=== PATIENT | female | born 1990 | race Caucasian/White ===

== ENCOUNTER → 2016-08-12 | Day surgery (SDC) | payer OTHER ==
[~2016-08-12] MED LIST: NO MEDICATIONS
--- NOTE | ~2016-08-12 | HP ---
Unit #: [id number] #: [id number] Patient: OLGA LIDIA LEOS [id number] [address] [place], [place] [address] [id number] O MR#: [id number] NAME: OLGA LIDIA LEOS ROOM: Age: 25 Sex: F Admission Date: 08/12/2016 : 1990 Attending Physician: Betsy Car M.D. Primary Care Physician: Yumiko Barnes M.D. HISTORY AND PHYSICAL CHIEF COMPLAINT Left foot pain. HISTORY OF PRESENT ILLNESS The patient is a 25-year-old female who fell off a horse in 2008 sustaining a left femoral neck fracture which was treated with open reduction internal fixation and two screws. The patient now has impingement of the screws against her talonavicular joint. She has failed to respond to conservative care to include physical therapy. She is now to undergo removal of the two screws. PAST MEDICAL HISTORY 1. Morbid obesity. 2. Anxiety. 3. Migraine headaches. 4. Cholelithiasis. PAST SURGICAL HISTORY 1. Brain surgery. 2. Left ankle external fixation. 3. Left talar open reduction internal fixation in 2008. ALLERGIES None. SOCIAL HISTORY The patient is a five pack-year smoker. She drinks alcohol socially. FAMILY HISTORY Stroke, hypertension, hypercholesterolemia, bipolar, depression, seizures, asthma, diabetes, COPD. REVIEW OF SYSTEMS Unremarkable. PHYSICAL EXAMINATION GENERAL: Height 5 foot 7, weight 365 pounds, BMI 57. In general, this is a morbidly obese female in no acute distress. She uses a cane PHARYNX: Clear. NECK: Supple without masses. HEART: Regular sinus rhythm without murmurs or gallops. LUNGS: Clear. ABDOMEN: Soft and nontender without masses. Unit #: [id number] #: [id number] Patient: OLGA LIDIA LEOS Evaluation of the left foot shows pes planus. The hindfoot is neutral. She has a well-healed anterior longitudinal incision over the ankle measuring 8 cm. There is no warmth or erythema. The patient is maximally tender over the anterior tibiotalar joint and over the sinus tarsus. Sensation is normal. Pulses are normal. Motor exam is normal. Left ankle dorsiflexion 0, plantar flexion is 40. Subtalar motion is normal. Standing x-rays of the left ankle show a well maintained tibiotalar joint and subtalar joint. Left foot x-rays shows two cannulated screws in the talar neck placed distal medial to lateral. ADMITTING DIAGNOSIS Painful retained left foot hardware. PLAN The patient is to undergo removal of the two screws. This procedure was described along with the risks of bleeding, infection, nerve damage, need for further surgery in the future, prolonged recovery time, deep venous thrombosis, pulmonary embolism, anesthetic complications. The patient understands the above risks and agrees to proceed. Dictated by Palomo Waggoner/arnold TD: 08/05/2016 06:09 JOB #: [id number] HISTORY AND PHYSICAL X Alcira Car MD HISTORY AND PHYSICAL
--- NOTE | ~2016-08-12 | OR ---
Unit #: [id number] #: [id number] Patient: OLGA LIDIA LEOS [id number] [address] [place], [place] [address] [id number] O MR#: [id number] NAME: OLGA LIDIA LEOS ROOM: Date of Procedure: 08/12/2016 Admission Date: 08/12/2016 Surgeon: Betsy Car M.D. : 1990 Attending Physician: Betsy Car M.D. Primary Care Physician: Yumiko Barnes M.D. OPERATIVE REPORT PREOPERATIVE DIAGNOSIS Painful retained left foot hardware. POSTOPERATIVE DIAGNOSIS Painful retained left foot hardware. PROCEDURE PERFORMED Left foot hardware removal (). ASSISTANTS MD Steven and ROSA Lange. ANESTHESIA General and local. INDICATIONS FOR SURGERY The patient is a 25-year-old female, who has undergone previous left talar neck open reduction and internal fixation seven years ago. She now has painful retained hardware with screw impingement on the proximal navicular. The patient is therefore to undergo removal of her two cannulated screws. The talar neck is healed anatomically and shows no evidence of arthritic change in the subtalar joint. DESCRIPTION OF PROCEDURE The patient was taken to the operating room and placed in supine position and general anesthetic was induced. The left foot was identified as the correct operative extremity during the time-out procedure. The IV antibiotic protocol was followed. The left leg was then prepped and draped in the usual sterile fashion. The leg was exsanguinated and the thigh tourniquet inflated to 300 mmHg. The old anterior longitudinal ankle incision was used and the distal half of the incision was utilized through the old scar. A 4 cm incision was then made. Subcutaneous tissue was divided. Care was taken to preserve the anterior neurovascular bundle. The deep fascia was opened. The talonavicular joint capsule was opened and the two previously placed cannulated screws were identified. They were easily removed with a hex head screwdriver. The wound was irrigated and then infiltrated with 0.5% plain Marcaine. The deep tissues were closed with 3-0 Vicryl. The skin was closed with 3-0 nylon horizontal mattress sutures. Xeroform gauze, dressing, sponges, Webril, Trey wrap, and postoperative shoe were placed. The patient was then transported to the recovery room in stable condition. Unit #: [id number] #: [id number] Patient: OLGA LIDIA LEOS ESTIMATED BLOOD LOSS Minimal. COMPLICATIONS None. SPECIMENS None. TOURNIQUET TIME About 15 minutes. Dictated byPalomo Polanco/herson TD: 08/12/2016 18:15 JOB #: [id number] OPERATIVE REPORT X Alcira Car MD X PROCEDURE OPERATIVE NOTE
--- NOTE | ~2016-08-12 | HP ---
Unit #: [id number] #: [id number] Patient: OLGA LIDIA LEOS [id number] [address] [place], [place] [address] [id number] O MR#: [id number] NAME: OLGA LIDIA LEOS ROOM: Age: Sex: F Admission Date: 08/12/2016 : 1990 Attending Physician: Betsy Car M.D. Primary Care Physician: Yumiko Barnes M.D. HISTORY AND PHYSICAL CHIEF COMPLAINT Left foot pain. HISTORY OF PRESENT ILLNESS This 25-year-old female underwent left talar neck fracture open reduction and internal fixation in 2008. She now has retained painful hardware which is impinging on her medial cuneiform. She is therefore to undergo removal of hardware. She has attended physical therapy without much change. She has pain in the anterior aspect of the ankle and uses the cane for ambulation. PAST MEDICAL HISTORY Past medical history is remarkable for migraine headaches, anxiety, cholelithiasis. PAST SURGICAL HISTORY Brain surgery, talar open reduction and internal fixation. HOME MEDICATIONS Aspirin, topiramate, venlafaxine. ALLERGIES None. FAMILY HISTORY Stroke, hypercholesterolemia, bipolar depression, seizures, asthma, hypercholesterolemia. SOCIAL HISTORY The patient is a social drinker. She is a [id number] smoker. REVIEW OF SYSTEMS Unremarkable. PHYSICAL EXAMINATION GENERAL: This is an obese female in no acute distress. HEENT: Pharynx is clear. NECK: Neck is supple, without masses. HEART: Exam reveals a regular sinus rhythm without murmurs or gallops. LUNGS: The lungs are clear. ABDOMEN: The abdomen is soft and nontender without masses or organomegaly. EXTREMITIES: Evaluation of the left foot shows a normal arch. The Unit #: [id number] #: [id number] Patient: OLGA LIDIA LEOS hindfoot is neutral. Ankle and subtalar motion are normal. She has tenderness over the anterior aspect of the ankle joint and dorsal medial midfoot. Sensation is normal. Pulses are normal. DIAGNOSTIC STUDIES IMAGING: Standing x-rays of the left foot show two large-diameter screws fixating the talar neck. They are placed from anteromedial to posterior. No arthritis of the subtalar or talonavicular joint is seen. CT scan shows screw impingement on the medial cuneiform. ADMITTING DIAGNOSIS Retained left foot painful hardware. PLAN The patient will undergo hardware removal. This procedure was described along with risks of bleeding, infection, nerve damage, need for further surgery in the future, failure to relieve her pain. She understands the above risks and agrees to proceed. Dictated by Palomo Waggoner/brice TD: 08/11/2016 20:25 JOB #: [id number] HISTORY AND PHYSICAL X Alcira Car MD X HISTORY AND PHYSICAL
== END | disposition home or self-care (01) ==
LOC: CSUR 05:09
DX: T84.84XA Pain due to internal orthopedic prosthetic devices, implants and grafts, initial encounter (principal); Y79.3 Surgical instruments, materials and orthopedic devices (including sutures) associated with adverse incidents; F17.200 Nicotine dependence, unspecified, uncomplicated; E66.01 Morbid (severe) obesity due to excess calories; Z82.3 Family history of stroke; Z83.3 Family history of diabetes mellitus; Z82.5 Family history of asthma and other chronic lower respiratory diseases; Z79.82 Long term (current) use of aspirin
CPT/HCPCS: 84703; J0690; J2250; J2270; J2405; J3010